=== PATIENT | female | born 1960 | race Two or more races ===

== ENCOUNTER 2016-09-02 15:45 | Emergency (ER) | payer OTHER ==
[~2016-09-02] VITALS: Ht 149.9 cm; Wt 63.5 kg
[2016-09-02 15:45] VITALS: BP 139/78
[2016-09-02] MEDS ORDERED: VITA200038 PO (15:53)
[2016-09-02] MEDS ORDERED: FISH1000 PO (15:53)
[2016-09-02 17:12] LABS: BASO % 0.7 % (0.0-1.0); EOS # 0.2 K/mm3 (0.0-0.50); EOS % 2.6 % (0.0-3.0); LARGE UNSTAINED CELL # 0.1 K/mm3 (0.0-0.4); LARGE UNSTAINED CELL % 1.7 % (0.0-4.0); LYMPH # 2.5 K/mm3 (1.5-4.5); LYMPH % 34.7 % (24.0-44.0); MEAN CORPUSCULAR HEMOGLOBIN 29.2 pg (27.0-33.0); MEAN CORPUSCULAR HGB CONC 34.5 g/dl (32.0-36.5); MEAN CORPUSCULAR VOLUME 84.6 fl (80.0-96.0); MONO # 0.4 K/mm3 (0.0-0.8); MONO % 5.4 % (0.0-5.0); NEUTROPHILS # 3.9 K/mm3 (1.8-7.7); NEUTROPHILS % 54.9 % (36.0-66.0); PLATELET COUNT, AUTOMATED 284 k/mm3 (150-450); WHITE BLOOD COUNT 7.2 K/mm3 (4.0-10.0)
[2016-09-02 17:35] LABS: ALBUMIN 4.3 GM/DL (3.2-5.2); ALBUMIN/GLOBULIN RATIO 1.23 (1.00-1.93); ALKALINE PHOSPHATASE 83 U/L (45-117); ALT/SGPT 32 U/L (12-78); ANION GAP 8 MEQ/L (8-16); AST/SGOT 14 U/L (15-37); BILIRUBIN,TOTAL 0.3 MG/DL (0.2-1.0); BLOOD UREA NITROGEN 20 MG/DL (7-18); CALCIUM LEVEL 9.2 MG/DL (8.5-10.1); CARBON DIOXIDE LEVEL 27 MEQ/L (21-32); CHLORIDE LEVEL 108 MEQ/L (98-107); CREATININE FOR GFR 0.72 MG/DL (0.55-1.02); GLOMERULAR FILTRATION RATE > 60.0 (>51); GLUCOSE, FASTING 108 MG/DL (70-105); POTASSIUM SERUM 3.8 MEQ/L (3.5-5.1); SODIUM LEVEL 143 MEQ/L (136-145); TOTAL PROTEIN 7.8 GM/DL (6.4-8.2)
[2016-09-02 17:45] LABS: CONTROL LINE INT CTR LINE PRESENT
[2016-09-05 11:57] LABS: HEPATITIS B SURFACE ANTIBODY POSITIVE (POSITIVE)
== END 2016-09-02 17:21 | disposition home or self-care (01) ==
LOC: M ED 16:29
DX: Z77.21 Contact with and (suspected) exposure to potentially hazardous body fluids (principal); W46.0XXA Contact with hypodermic needle, initial encounter; Y92.239 Unspecified place in hospital as the place of occurrence of the external cause; Y93.89 Activity, other specified; Y99.0 Civilian activity done for income or pay

== ENCOUNTER 2018-10-01 23:19 | Observation (INO) | payer OTHER, SELFPAY ==
[~2018-10-01] VITALS: Ht 149.9 cm; Wt 65.9 kg
[~2018-10-01 23:19] MED LIST: FISH1000 PO; VITA200038 PO
[2018-10-01] MEDS ORDERED: HM V5000 PO (23:26)
[2018-10-01] MEDS ORDERED: MULTCAP PO (23:26)
[2018-10-02 01:04] LABS: BASO % 0.5 % (0.0-1.0); EOS # 0.2 10^3/uL (0.0-0.50); EOS % 2.1 % (0.0-3.0); HEMATOCRIT 44.4 % (36.0-47.0); HEMOGLOBIN 15.1 g/dl (12.0-15.5); LYMPH # 3.4 10^3/uL (1.5-4.5); MEAN CORPUSCULAR HEMOGLOBIN 29.3 pg (27.0-33.0); MEAN CORPUSCULAR VOLUME 86.2 fl (80.0-96.0); MONO # 0.5 10^3/uL (0.0-0.8); MONO % 6.4 % (0.0-5.0); NEUTROPHILS # 3.4 10^3/uL (1.8-7.7); NEUTROPHILS % 45.7 % (36.0-66.0); PLATELET COUNT, AUTOMATED 270 10^3/uL (150-450); RED BLOOD COUNT 5.15 10^6/uL (4.00-5.40); WHITE BLOOD COUNT 7.5 10^3/uL (4.0-10.0)
--- NOTE | 2018-10-02 01:06 | REPVR ---
EXAM: CT Head Without Contrast EXAM DATE/TIME: 10/02/2018 12:16 AM CLINICAL HISTORY: 58 years old, female; Signs and symptoms; Other: Left arm weak; Additional info: CVA - nursing interventions must not delay CT TECHNIQUE: Imaging protocol: Axial computed tomography images of the head/brain without contrast. Radiation optimization: All CT scans at this facility use at least one of these dose optimization techniques: automated exposure control; mA and/or kV adjustment per patient size (includes targeted exams where dose is matched to clinical indication); or iterative reconstruction. COMPARISON: No relevant prior studies available. FINDINGS: Brain: Normal. No hemorrhage. No significant white matter disease. No edema. Ventricles: Normal. No ventriculomegaly. Bones/joints: Unremarkable. No acute fracture. Sinuses: Visualized sinuses are unremarkable. No acute sinusitis. Mastoid air cells: Visualized mastoid air cells are unremarkable. No mastoid effusion. Soft tissues: Unremarkable. IMPRESSION: No acute intracranial abnormality. Electronically signed by: Amanda Pierson On 10/02/2018 01:05:52 AM
[2018-10-02 01:17] LABS: INR 0.92; PARTIAL THROMBOPLASTIN TIME 30.7 SECONDS (25.4-37.6); PROTHROMBIN TIME 12.5 SECONDS (12.1-14.4)
[2018-10-02 01:57] LABS: BLOOD UREA NITROGEN 13 MG/DL (7-18); CARBON DIOXIDE LEVEL 25 MEQ/L (21-32); CHLORIDE LEVEL 108 MEQ/L (98-107); CK-MB VALUE MASS < 1.0 NG/ML (<3.6); CPK CREATINE PHOSPHOKINASE 123 U/L (26-192); CREATININE FOR GFR 0.68 MG/DL (0.55-1.30); GLOMERULAR FILTRATION RATE > 60.0 (>45); GLUCOSE, FASTING 110 MG/DL (70-100); MB/CK RELATIVE INDEX 0.81 (< OR =4); POTASSIUM SERUM 4.4 MEQ/L (3.5-5.1); SODIUM LEVEL 141 MEQ/L (136-145); TROPONIN I < 0.02 NG/ML (< 0.10)
[2018-10-02] MEDS ORDERED: ACETAMINOPHEN TAB 650MG DOSE (2X325MG) PO ONE (02:15)
[2018-10-02] MEDS ORDERED: VITMTA PO (02:36)
[2018-10-02] MEDS ORDERED: ARTI99.0 OU (02:36)
[2018-10-02] MEDS ORDERED: VITA500T41 PO (02:36)
[2018-10-02] MEDS ORDERED: ASPI81TA85 PO (02:36)
[2018-10-02] MEDS ORDERED: ACETAMINOPHEN TAB 650MG DOSE (2X325MG) PO PRN (02:45)
--- NOTE | 2018-10-02 02:56 | HPEPDOC ---
General Date of Admission Oct 02, 2018 at 02:18 Chief Complaint The patient is a 58-year-old female admitted with a reason for visit of Transie nt Ischemic Attack. Source: Patient History of Present Illness 58 y/o F c/o one episode of left arm weakness, lasted for less than 10 minutes, resolved its own. Pt stated that at about 10 pm on 10/01/18, while watching TV she felt her left arm was weak associated with mild headache. In ER pt was found with with vitals of BP 197/95 then improved to 150/80 without any intervention, HR 73, RR 20, Temp 97.6, SpO2-97% on RA; CT head- no acute pathology, EKG- NSR. Tylenol was ordered for headache. Hospitalist service was consulted to admit the pt for observation. Pt was seen and examined at bedside in ER. Pt was resting comfortably in bed, c/o headache. Pt stated that she did not see a physician in last 3 years and does not take any prescribed medication. PMH- ? h/o prediabetes. PSxH- B/l oophorectomy Allergies- NKDA Home meds- reviewed, please refer to permanent medical records. 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 Abdomen- soft, non tender, Psychiatric- mood normal Labs and imaging studies reviewed. WBC 7.5 H/H 15.1/44.[address] head- no acute pathology EKG- NSR Pt might have had resolved episode of left arm weakness secondary to TIA Impression- TIA Plan will f/u MRI head, MRA head/neck, telemetry will f/u lipid profile, HbA1c elevated BP pt stated that she noticed her BP was elevated for past 1 week will continue to monitor BP, will consider starting on antihypertensive medications depending on clinical course Home Medications Scheduled Cyanocobalamin (Vitamin B-12) (Vitamin B-12) 500 Mcg Tablet, 500 MCG PO DAILY, (Reported) Multivitamins (Thera M Plus Tablet) 1 Each Tablet, 1 TAB PO DAILY, (Reported) Scheduled PRN Aspirin (Aspir 81) 81 Mg Tablet.dr, 81 MG PO Q4H PRN for HEADACHE, (Reported) Polyvinyl Alcohol (Artificial Tears) 15 Ml Drops, 1 DROP OU QID PRN for DRY EYES, (Reported) Allergies Coded Allergies: No Known Allergies (Unverified , 09/02/16) A-FIB/CHADSVASC A-FIB History Current/History of A-Fib/PAF?: No Current Oral Anticoagulant The: No Vital Signs Vital Signs Date Time Temp Pulse Resp B/P (MAP) Pulse Ox O2 Delivery O2 Flow Rate FiO2 10/02/18 01:46 51 18 150/80 (103) 95 Room Air 10/01/18 23:19 97.6 Laboratory Data Labs 24H Laboratory Tests 2 10/02/18 00:56: Bedside Glucose (Misc Panel) 112 10/02/18 00:58: Immature Granulocyte % (Auto) 0.3, White Blood Count 7.5, Red Blood Count 5.15, Hemoglobin 15.1, Hematocrit 44.4, Mean Corpuscular Volume 86.2, Mean Corpuscular Hemoglobin 29.3, Mean Corpuscular Hemoglobin Concent 34.0, Red Cell Distribution Width 12.4, Platelet Count 270, Neutrophils (%) (Auto) 45.7, Lymphocytes (%) (Auto) 45.0H, Monocytes (%) (Auto) 6.4H, Eosinophils (%) (Auto) 2.1, Basophils (%) (Auto) 0.5, Neutrophils # (Auto) 3.4, Lymphocytes # (Auto) 3.4, Monocytes # (Auto) 0.5, Eosinophils # (Auto) 0.2, Basophils # (Auto) 0.0, Nucleated Red Blood Cells % (auto) 0.0, Prothrombin Time 12.5, Prothromb Time International Ratio 0.92, Activated Partial Thromboplast Time 30.7, Anion Gap 8, Glomerular Fi ltration Rate > 60.0, Blood Urea Nitrogen 13, Creatinine 0.68, Sodium Level 141, Potassium Level 4.4, Chloride Level 108H, Carbon Dioxide Level 25, Calcium Level 9.0, Total Creatine Kinase 123, Creatine Kinase MB < 1.0, Creatine Kinase MB Relative Index 0.81, Troponin I < 0.02 CBC/BMP Laboratory Tests 10/02/18 00:58 Red Blood Count 5.15, Mean Corpuscular Volume 86.2, Mean Corpuscular Hemoglobin 29.3, Mean Corpuscular Hemoglobin Concent 34.0, Red Cell Distribution Width 12.4 , Neutrophils (%) (Auto) 45.7, Lymphocytes (%) (Auto) 45.0 H, Monocytes (%) (Auto) 6.4 H, Eosinophils (%) (Auto) 2.1, Basophils (%) (Auto) 0.5, Neutrophils # (Auto) 3.4, Lymphocytes # (Auto) 3.4, Monocytes # (Auto) 0.5, Eosinophils # (Auto) 0.2, Basophils # (Auto) 0.0, Calcium Level 9.0, Total Creatine Kinase 123 Plan / VTE VTE Prophylaxis Ordered?: No VTE Exclusion Mechanical Proph: Low Risk for VTE TRINI PONCE MD Oct 02, 2018 02:56
[2018-10-02] MEDS ORDERED: ASPIRIN 81 MG ENTERIC TAB PO PRN (03:00)
[2018-10-02] MEDS ORDERED: POLYVINYL ALCOHOL OPHTH SOLN 15 ML(LIQUITEARS) OU PRN (03:00)
--- NOTE | 2018-10-02 07:28 | ECGEPIP ---
Stationary ECG Study [facility] - ED Test Date: 2018-10-02 Pat Name: MARKY LEROY Department: Room: - Gender: F [employer]: drew : 1960 Requested By: LIZZETTE Sharp Order Number: [id number] Reading MD: Omar Hdez Measurements Intervals Sisters Rate: 74 P: 52 CA: 158 QRS: -27 QRSD: 96 T: 14 QT: 384 QTc: 428 Interpretive Statements SINUS RHYTHM WITH SINUS ARRHYTHMIA BORDERLINE LEFT AXIS DEVIATION INCOMPLETE RIGHT BUNDLE BRANCH BLOCK NSTTW ABNORMALITIES SIMILAR TO 07/31/13 Electronically Signed On 10-02-2018 7:28:02 EDT by Omar Hdez
[2018-10-02 08:00] VITALS: BP 144/83
[2018-10-02 08:29] LABS: CHOLESTEROL LEVEL 295 MG/DL (<200); CHOLESTEROL RISK RATIO 7.375 (<5); HDL CHOLESTEROL 40 MG/DL (>40); NON-HDL-C 255 MG/DL; TRIGLYCERIDES LEVEL 413 MG/DL (<150)
--- NOTE | 2018-10-02 08:40 | REP ---
Portable chest x-ray: Single view. History: CVA. Comparison chest x-ray: 30 July 2013. Findings: EKG monitoring electrodes overlie the chest. There is minimal plate-like atelectasis in the right base. Heart is not enlarged. The aorta somewhat tortuous. Pulmonary vasculature is not increased. Impression: Plate-like atelectasis right base. Otherwise no active disease. Electronically Signed by Wilbert Griffin MD 10/02/2018 08:31 A
[2018-10-02] MEDS ORDERED: CYANOCOBALAMIN 500 MCG TAB PO SCH (09:00)
[2018-10-02] MEDS ORDERED: MULTIVITAMINS/MINERALS THERAP 1 TAB PO SCH (09:00)
[2018-10-02 10:14] LABS: HEMOGLOBIN A1c 6.3 %
[2018-10-02] MEDS ORDERED: PROHANCE 279.3MG/ML 5ML VIAL (A9576) As Ordered ONE (10:46)
[2018-10-02] MEDS ORDERED: PROHANCE 279.3MG/ML 15ML VIAL (A9576) As Ordered ONE (10:47)
--- NOTE | 2018-10-02 11:59 | REP ---
MRA BRAIN WITHOUT CONTRAST: HISTORY: TIA. 3D [id number]-dmkkug MR angiography was performed at the level of the solomon of [place]. There is no aneurysm, arteriovenous malformation, or atherosclerotic lesion. 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 The left vertebral artery is dominant. The right vertebral artery is very hypoplastic. IMPRESSION: Normal MRA brain. Electronically Signed by Quoc Valverde MD 10/02/2018 12:02 P
--- NOTE | 2018-10-02 12:05 | REP ---
MRA CAROTIDS WITHOUT AND WITH CONTRAST: HISTORY: TIA. CONTRAST: ProHance 25 mL. Unenhanced 3D [id number] and contrast-enhanced MR angiography were performed at the level of the carotid bifurcations. The distal common carotid arteries and origins of the external and internal carotid arteries are normal. There are no atherosclerotic lesions. The vertebral arteries are patent. The left vertebral artery is dominant. The distal right vertebral artery is very hypoplastic. IMPRESSION: Normal MRA carotids. Electronically Signed by Quoc Valverde MD 10/02/2018 12:06 P
--- NOTE | 2018-10-02 12:36 | REP ---
MR BRAIN WITHOUT CONTRAST: HISTORY: TIA. COMPARISON: CT 10/02/2018. Several punctate areas of increased signal intensity on T2-weighted images are present in the periventricular and subcortical white matter. This represents small vessel ischemic disease. There is no intraparenchymal hemorrhage, infarct, mass, or midline shift. The sella turcica is partially empty. The ventricular system is normal in appearance. There is no extracerebral collection. A retention cyst is present in the right maxillary sinus. IMPRESSION: Minimal small vessel ischemic disease. Electronically Signed by Quoc Valverde MD 10/02/2018 12:46 P
[2018-10-02] MEDS ORDERED: AMLO5TAB6 PO (13:55)
[2018-10-02] MEDS ORDERED: SIMV10TA2 PO (13:55)
--- NOTE | 2018-10-02 14:42 | DS.PDOC ---
Discharge Summary General Date of Admission Oct 02, 2018 at 02:18 Discharge Summary PROCEDURES PERFORMED DURING STAY: [None]. ADMITTING DIAGNOSES: TIA Headache Hypertension DISCHARGE DIAGNOSES: Hypertension urgency Hyperlipidemia Possible TIA COMPLICATIONS/CHIEF COMPLAINT: Transient Ischemic Attack. HISTORY OF PRESENT ILLNESS: [ 58 y/o F c/o one episode of left arm weakness, lasted for less than 10 minutes, resolved its own. Pt stated that at about 10 pm on 10/01/18, while watching TV she felt her left arm was weak associated with mild headache. In ER pt was found with with vitals of BP 197/95 then improved to 150/80 without any intervention, HR 73, RR 20, Temp 97.6, SpO2-97% on RA; CT head- no acute pathology, EKG- NSR. Tylenol was ordered for headache. Hospitalist service was consulted to admit the pt for observation. Pt was seen and examined at bedside in ER. Pt was resting comfortably in bed, c/o headache. Pt stated that she did not see a physician in last 3 years and does not take any prescribed medication.]. HOSPITAL COURSE: [58-year-old female with only history of prediabetes? Who presented complaining of one episode of left arm weakness lasting for less than 10 minutes that resolved on its own. She incidentally also noted to have elevated blood pressure along with a headache. Patient was admitted for TIA evaluation. Patient had a CT of the head which showed no acute abnormality. Chest x-ray showed platelike atelectasis at the right base but otherwise no active disease. MRA of the carotids showed normal finding. MRA of the brain showed normal brain. MRI of the brain showed minimal small vessel ischemic disease. Her WBC, H&H, platelet within normal. Her basic metabolic profiles within normal except for glucose of 110 and minimal elevation of chloride. Her hemoglobin A1c is within normal. Troponin is negative. Her triglyceride is elevated above 400 and total cholesterol is over and 200. Patient's weakness resolved and back to baseline. Patient agreeable to going home today and fol lowing up with a PCP of her choosing within 1 week. Patient also aware of her elevated cholesterol level. She is agreeable to take simvastatin for now and continue diet and exercise, and follow up with primary care as outpatient. Patient also has a home blood pressure cuff that she uses a time. Advised patient to monitor blood pressure and to hold amlodipine if her blood pressure systolic is less than 100. Again patient to follow up with PCP as outpatient within 1 week. DISCHARGE MEDICATIONS: Please see below. ALLERGIES: Please see below. PHYSICAL EXAMINATION ON DISCHARGE: VITAL SIGNS: Please see below. GENERAL APPEARANCE: Resting comfortably HEENT: Normocephalic, PERRLA, Mucous moist, CARDIOVASCULAR: S1,S2, pulse present, regularly, regular, no obvious murmur LUNGS: Equal air entry b/l, no wheezes or crackle ABDOMEN: Soft, BS present, no tenderness, no guarding GENITOURINARY: No Lerma EXTREMITIES: B/L no edema, capillary refill present SKIN: Warm, No fever NEUROLOGICAL: Cranial nerves grossly intact PSYCHIATRIC: Normal mood and affect for current situation LABORATORY DATA: Please see below. IMAGING: [ CT head: No acute intracranial abnormality. CXR: Plate-like atelectasis right base. Otherwise no active disease. MRA carotid: Normal MRA carotids. MRA brain: Normal MRA brain. MRI brain: Minimal small vessel ischemic disease.] PROGNOSIS: [Improved] ACTIVITY: [As tolerated]. DIET: [Low-salt diet] DISCHARGE PLAN: [Please follow up with PCP within one week. DISPOSITION: Home DISCHARGE INSTRUCTIONS: Please follow up with PCP 1 week. Antihypertensive and statin therapy prescription provided. DISCHARGE CONDITION: [Stable]. TIME SPENT ON DISCHARGE: Greater than [30] minutes. Vital Signs/I&Os Vital Signs Date Time Temp Pulse Resp B/P (MAP) Pulse Ox O2 Delivery O2 Flow Rate FiO2 10/02/18 07:30 74 18 Room Air 10/02/18 06:27 97.9 144/83 (103) 97 Laboratory Data Labs 24H Laboratory Tests 2 10/02/18 00:56: Bedside Glucose (Misc Panel) 112 10/02/18 00:58: Immature Granulocyte % (Auto) 0.3, White Blood Count 7.5, Red Blood Count 5.15, Hemoglobin 15.1, Hematocrit 44.4, Mean Corpuscular Volume 86.2, Mean Corpuscular Hemoglobin 29.3, Mean Corpuscular Hemoglobin Concent 34.0, Red Cell Distribution Width 12.4, Platelet Count 270, Neutrophils (%) (Auto) 45.7, Lymphocytes (%) (Auto) 45.0H, Monocytes (%) (Auto) 6.4H, Eosinophils (%) (Auto) 2.1, Basophils (%) (Auto) 0.5, Neutrophils # (Auto) 3.4, Lymphocytes # (Auto) 3.4, Monocytes # (Auto) 0.5, Eosinophils # (Auto) 0.2, Basophils # (Auto) 0.0, Nucleated Red Blood Cells % (auto) 0.0, Prothrombin Time 12.5, Prothromb Time International Ratio 0.92, Activated Partial Thromboplast Time 30.7, Anion Gap 8, Glomerular Filtration Rate > 60.0, Estimated Mean Plasma Glucose 134H, Hemoglobin A1c 6.3, Calcium Level 9.0, Total Creatine Kinase 123, Creatine Kinase MB < 1.0, Creatine Kinase MB Relative Index 0.81, Troponin I < 0.02, Triglycerides Level 413H, LDL Cholesterol , Total Cholesterol 295H, Non-HDL Cholesterol (LDL + VLDL) 255, Total HDL Cholesterol 40, Cholesterol/HDL Ratio 7.375H CBC/BMP Laboratory Tests 10/02/18 00:58 Red Blood Count 5.15, Mean Corpuscular Volume 86.2, Mean Corpuscular Hemoglobin 29.3, Mean Corpuscular Hemoglobin Concent 34.0, Red Cell Distribution Width 12.4, Neutrophils (%) (Auto) 45.7, Lymphocytes (%) (Auto) 45.0 H, Monocytes (%) (Auto) 6.4 H, Eosinophils (%) (Auto) 2.1, Basophils (%) (Auto) 0.5, Neutrophils # (Auto) 3.4, Lymphocytes # (Auto) 3.4, Monocytes # (Auto) 0.5, Eosinophils # (Auto) 0.2, Basophils # (Auto) 0.0, Calcium Level 9.0, Total Creatine Kinase 123 FSBS Laboratory Tests Test 10/02/18 00:56 Range/Units Bedside Glucose (Misc Panel) 112 80-115 MG/DL Discharge Medications Scheduled Amlodipine Besylate (Amlodipine Besylate) 5 Mg Tablet, 5 MG PO DAILY Cyanocobalamin (Vitamin B-12) (Vitamin B-12) 500 Mcg Tablet, 500 MCG PO DAILY, (Reported) Multivitamins (Thera M Plus Tablet) 1 Each Tablet, 1 TAB PO DAILY, (Reported) Simvastatin (Simvastatin) 10 Mg Tablet, 1 TAB PO QPM Scheduled PRN Aspirin (Aspir 81) 81 Mg Tablet.dr, 81 MG PO Q4H PRN for HEADACHE, (Reported) Polyvinyl Alcohol (Artificial Tears) 15 Ml Drops, 1 DROP OU QID PRN for DRY EYES, (Reported) Allergies Coded Allergies: No Known Allergies (Unverified , 09/02/16) PEDRO MCBRIDE MD Oct 02, 2018 14:42
== END 2018-10-02 15:11 | disposition home or self-care (01) ==
LOC: M ED 23:19 → M ED INP 10-02 02:18
PROVIDERS: ADMIT Internal Medicine; ATTEND Internal Medicine
DX: I16.0 Hypertensive urgency (principal); E78.49 Other hyperlipidemia; G45.9 Transient cerebral ischemic attack, unspecified; R51 Headache; Z79.899 Other long term (current) drug therapy
CPT/HCPCS: 36415; 70450; 70544; 70549; 70551; 71045; 80048; 80061; 82550; 82553; 83036; 84484; 85025; 85610; 85730; 86850; 86900; 86901; 93005; 93041; 94760; 99285; A9576

== ENCOUNTER → 2018-10-14 | Outpatient (CLI) | payer OTHER ==
[~2018-10-14] MED LIST changes: +AMLO5TAB6 PO; +ARTI99.0 OU; +ASPI81TA85 PO; +HM V5000 PO; +MULTCAP PO; +SIMV10TA2 PO; +VITA500T41 PO; +VITMTA PO
--- NOTE | 2018-10-15 05:32 | REP ---
Clinical: Left neck swelling at the periauricular region. Technique: Real time kearney scale and color evaluation using linear and curved array transducers. Findings: Directed ultrasound examination along the left posterior inferior auricular region of the neck demonstrates few hypoechoic ovoid lesions which are otherwise nonspecific but likely represent small lymph nodes. Findings measures 7 x 4 x 5 mm, 6 x 5 x 2 mm, and 3 x 1 x 3 mm. Impression: Nonspecific hypoechoic ovoid lesions likely representing small lymph nodes or possible small benign granulomatous change. Findings appear avascular and likely benign/chronic by ultrasound.
== END ==
LOC: M WHC 09:55
PROVIDERS: ATTEND Family Medicine
DX: R22.1 Localized swelling, mass and lump, neck (principal)

== ENCOUNTER → 2018-11-24 | Outpatient (REF) | payer OTHER ==
[2018-11-24 14:01] LABS: BLOOD UREA NITROGEN 22 MG/DL (7-18); CALCIUM LEVEL 9.1 MG/DL (8.8-10.2); CARBON DIOXIDE LEVEL 27 MEQ/L (21-32); CHLORIDE LEVEL 106 MEQ/L (98-107); CREATININE FOR GFR 0.74 MG/DL (0.55-1.30); GLOMERULAR FILTRATION RATE > 60.0 (>45); GLUCOSE, FASTING 94 MG/DL (70-100); POTASSIUM SERUM 4.1 MEQ/L (3.5-5.1); SODIUM LEVEL 140 MEQ/L (136-145)
== END ==
LOC: M SFHCPLAZ 11:14
PROVIDERS: ATTEND Family Medicine
DX: I10 Essential (primary) hypertension (principal)
CPT/HCPCS: 36415; 80048; G0463

== ENCOUNTER → 2018-12-03 | Outpatient (REF) | payer OTHER ==
[2018-12-09 14:31] LABS: HPV LOW VOL RFLX Negative (Negative)
== END ==
LOC: M SFHCPLAZ 10:19
PROVIDERS: ATTEND Family Medicine
DX: Z12.4 Encounter for screening for malignant neoplasm of cervix (principal)

== ENCOUNTER → 2018-12-10 | Outpatient (REF) | payer OTHER ==
[2018-12-10 13:32] LABS: BLOOD UREA NITROGEN 21 MG/DL (7-18); CREATININE FOR GFR 0.78 MG/DL (0.55-1.30); GLUCOSE, FASTING 102 MG/DL (70-100)
[2018-12-10 13:33] LABS: CALCIUM LEVEL 9.1 MG/DL (8.8-10.2); CARBON DIOXIDE LEVEL 26 MEQ/L (21-32); CHLORIDE LEVEL 106 MEQ/L (98-107); GLOMERULAR FILTRATION RATE > 60.0 (>45); POTASSIUM SERUM 3.8 MEQ/L (3.5-5.1); SODIUM LEVEL 139 MEQ/L (136-145)
== END ==
LOC: M SFHCPLAZ 08:58
PROVIDERS: ATTEND Family Medicine
DX: I10 Essential (primary) hypertension (principal)

== ENCOUNTER → 2019-01-07 | Outpatient (CLI) | payer OTHER ==
--- NOTE | 2019-01-07 14:35 | REPMRS ---
Patient History The patient states she had a clinical breast exam in 11/2018. Patient is postmenopausal. No known family history of cancer. Digital Woman Screen Mammo: January 07, 2019 - Exam #: [id number] Bilateral CC and MLO view(s) were taken. Technologist: Cindi Rader, Technologist Prior study comparison: January 05, 2011, bilateral digital mammo screening bilat, performed at [facility]. March 01, 2006, bilateral screening mammogram, performed at [facility]. FINDINGS: There are scattered fibroglandular densities. There has been no change in the appearance of the mammogram from the prior studies. There is a mild amount of scattered fibroglandular density which is fairly symmetric. There is no interval development of dominant mass, architectural distortion, or grouped microcalcification suggestive of malignancy. Assessment: BI-RADS/ACR category 1 mammogram. Negative Mammogram. Recommendation Routine screening mammogram of both breasts in 1 year (for women over age 40). This patient's Lifetime Breast Cancer Risk is estimated at 6.4 %. This mammogram was interpreted with the aid of an FDA-approved computer-aided dectection system. Electronically Signed By: Martin Griffin MD 01/07/19 [id number]
== END ==
LOC: M WHC 13:17
PROVIDERS: ATTEND Family Medicine
DX: Z12.31 Encounter for screening mammogram for malignant neoplasm of breast (principal); Z78.0 Asymptomatic menopausal state

== ENCOUNTER → 2019-05-26 | Outpatient (REF) | payer OTHER ==
[~2019-05-26] MED LIST changes: -ARTI99.0 OU; +ARTIDRO2 OU; -SIMV10TA2 PO; +SIMV10TA21 PO
[2019-05-26 17:11] LABS: CHOLESTEROL LEVEL 329 MG/DL (<200); HDL CHOLESTEROL 35 MG/DL (>40); NON-HDL-C 294 MG/DL; TRIGLYCERIDES LEVEL 864 MG/DL (<150)
== END ==
LOC: M SFHCLERA 13:21
PROVIDERS: ATTEND Family Medicine
DX: Z13.220 Encounter for screening for lipoid disorders (principal)

== ENCOUNTER → 2019-09-22 | Outpatient (REF) | payer OTHER ==
[~2019-09-22] MED LIST changes: -ARTIDRO2 OU; +POLYOPD OU
[2019-09-22 11:33] LABS: CHOLESTEROL LEVEL 223 MG/DL (<200); CHOLESTEROL RISK RATIO 6.194 (<5); HDL CHOLESTEROL 36 MG/DL (>40); NON-HDL-C 187 MG/DL; TRIGLYCERIDES LEVEL 479 MG/DL (<150)
== END ==
LOC: M SFHCLERA 07:36
PROVIDERS: ATTEND Family Medicine
DX: E78.2 Mixed hyperlipidemia (principal)

== ENCOUNTER → 2020-03-18 | Outpatient (REF) | payer OTHER ==
[~2020-03-18] MED LIST changes: +AMLO1TAB24 PO; -AMLO5TAB6 PO; -ASPI81TA85 PO; +ASPI81TA86 PO
[2020-03-18 14:27] LABS: BLOOD UREA NITROGEN 13 MG/DL (7-18); CALCIUM LEVEL 9.8 MG/DL (8.8-10.2); CARBON DIOXIDE LEVEL 30 MEQ/L (21-32); CHLORIDE LEVEL 102 MEQ/L (98-107); CHOLESTEROL LEVEL 220 MG/DL (<200); CREATININE FOR GFR 0.69 MG/DL (0.55-1.30); GLOMERULAR FILTRATION RATE > 60.0 (>45); GLUCOSE, FASTING 107 MG/DL (70-100); HDL CHOLESTEROL 40 MG/DL (>40); NON-HDL-C 180 MG/DL; SODIUM LEVEL 137 MEQ/L (136-145); TRIGLYCERIDES LEVEL 449 MG/DL (<150)
== END ==
LOC: M PLALAB 10:32
PROVIDERS: ATTEND Family Medicine
DX: E78.2 Mixed hyperlipidemia (principal); I10 Essential (primary) hypertension

== ENCOUNTER → 2020-09-22 | Outpatient (REF) | payer OTHER ==
[2020-09-22 13:57] LABS: BLOOD UREA NITROGEN 15 MG/DL (7-18); CALCIUM LEVEL 9.5 MG/DL (8.8-10.2); CARBON DIOXIDE LEVEL 30 MEQ/L (21-32); CHLORIDE LEVEL 107 MEQ/L (98-107); GLOMERULAR FILTRATION RATE > 60.0 (>45); GLUCOSE, FASTING 105 MG/DL (70-100); POTASSIUM SERUM 4.3 MEQ/L (3.5-5.1); SODIUM LEVEL 141 MEQ/L (136-145)
[2020-09-22 13:58] LABS: ALBUMIN 4.5 GM/DL (3.2-5.2); ALT/SGPT 55 U/L (12-78); BILIRUBIN,TOTAL 0.4 MG/DL (0.2-1.0); CHOLESTEROL LEVEL 164 MG/DL (<200); HDL CHOLESTEROL 41 MG/DL (>40); LDL CHOLESTEROL 74 MG/DL (<100); NON-HDL-C 123 MG/DL; TOTAL PROTEIN 8.1 GM/DL (6.4-8.2); TRIGLYCERIDES LEVEL 246 MG/DL (<150)
== END ==
LOC: M PLALAB 08:45
PROVIDERS: ATTEND Family Medicine
DX: E78.2 Mixed hyperlipidemia (principal); I10 Essential (primary) hypertension

== ENCOUNTER 2021-04-14 16:23 | Emergency (ER) | payer OTHER ==
[~2021-04-14] VITALS: Ht 149.9 cm; Wt 66.8 kg
[2021-04-14] MEDS ORDERED: HYDR12.55 (16:39)
[2021-04-14] MEDS ORDERED: ROSU20TA5 (16:39)
[2021-04-14] MEDS ORDERED: ONDANSETRON 4 MG ORAL DISINTEGRATING TAB PO ONE (17:25)
[2021-04-14] MEDS ORDERED: MECLIZINE 25 MG TABLET PO ONE (17:25)
[2021-04-14 18:21] LABS: BASO % 0.3 % (0.0-1.0); EOS % 0.1 % (0.0-3.0); HEMOGLOBIN 15.9 g/dl (12.0-15.5); LYMPH # 1.7 10^3/uL (1.5-5.0); MEAN CORPUSCULAR HEMOGLOBIN 28.5 pg (27.0-33.0); MEAN CORPUSCULAR HGB CONC 33.8 g/dl (32.0-36.5); MEAN CORPUSCULAR VOLUME 84.2 fl (80.0-96.0); MONO # 0.5 10^3/uL (0.0-0.8); NEUTROPHILS % 82.1 % (36.0-66.0); PLATELET COUNT, AUTOMATED 285 10^3/uL (150-450); RED BLOOD COUNT 5.58 10^6/uL (4.00-5.40); WHITE BLOOD COUNT 13.4 10^3/uL (4.0-10.0)
[2021-04-14 18:31] LABS: BLOOD UREA NITROGEN 16 MG/DL (7-18); CALCIUM LEVEL 10.2 MG/DL (8.8-10.2); CARBON DIOXIDE LEVEL 21 MEQ/L (21-32); CHLORIDE LEVEL 103 MEQ/L (98-107); CREATININE FOR GFR 0.87 MG/DL (0.55-1.30); GLOMERULAR FILTRATION RATE > 60.0 (>45); GLUCOSE, FASTING 158 MG/DL (70-100); POTASSIUM SERUM 3.9 MEQ/L (3.5-5.1); SODIUM LEVEL 138 MEQ/L (136-145)
--- NOTE | 2021-04-14 18:31 | REPVR ---
PROCEDURE INFORMATION: Exam: CT Head Without Contrast Exam date and time: 04/14/2021 5:54 PM Age: 60 years old Clinical indication: Other: Vertigo; Additional info: Vertigo 5 hrs ago TECHNIQUE: Imaging protocol: Computed tomography of the head without contrast. Radiation optimization: All CT scans at this facility use at least one of these dose optimization techniques: automated exposure control; mA and/or kV adjustment per patient size (includes targeted exams where dose is matched to clinical indication); or iterative reconstruction. COMPARISON: MRI-Brain without Contrast 10/02/2018 10:37 AM FINDINGS: Brain: No hemorrhage. Unremarkable white matter for the patient's age. No mass effect. No evolving territorial infarct. Mild volume loss. Cerebral ventricles: No ventriculomegaly. Paranasal sinuses: Visualized sinuses are unremarkable. No fluid levels. Mastoid air cells: Visualized mastoid air cells are well aerated. Bones/joints: Unremarkable. No acute fracture. Soft tissues: Unremarkable. IMPRESSION: No acute intracranial abnormality seen. Electronically signed by: Tori Bhandari On 04/14/2021 18:31:38 PM
--- OUTSIDE RECORDS SUMMARY | 2021-04-14 18:31 | CCD ---
Author Author [facility] Organization [facility] Address Unknown Phone Unavailable Care Team Providers Care Incident Response Coordinator Name Role Phone Johana Armas Unavailable PROBLEMS Type Condition ICD9-CM Code BXM10-WU Code Onset Dates Condition S tatus W/U Status Risk SNOMED Code Notes Problem Tension headache G44.209 Active confirmed 39 8946629 Problem Right hand paresthesia R20.2 Active confirmed 022338026 Problem Mixed hyperlipidemia E78.2 Active confirmed 607968323 Problem Essential hypertension I10 Active confirmed 99946496 Problem Vaginal atrophy N95.2 Active confirmed 2978 72612 Problem Seasonal allergic rhinitis, unspecified trigger J3 0.2 Active confirmed [id number] ALLERGIES Allergen (clinical drug ingredient) Drug/Non Drug Allergy do cumented on EMR Reaction Allergy Type Onset Date Status Pollen Pollen nasal drainage and congestion Drug Allergy Active ENCOUNTERS from 1960 to 2021-03-31 Encounter Location Date Provider Diagnosis [address] [phone] [place] [address] Mar, Johana Armas IMMUNIZATIONS Vaccine Route Administration Date Status TDAP 0.5mL (Boostrix) IM Intramuscular Jul 29, 2012 Administe red Influenza 6mo & up Fluzone Unknown May 18, 2014 Refus ed SOCIAL HISTORY Sex Assigned At : Social History Observation Description Sex Assigned At Unknown Audit Question Answer Notes Total Score: 0 Interpretation: Alcohol Education Sexual Hx: Question Answer Notes Had sex in the last 12 months (vaginal, oral, or anal)? Yes Have you ever had an STD? No Prevention Strategies discussed: Other with Men only Use protection? No Drug and Alcohol Question Answer Notes Total Score: 0 Interpretation: No problems reported BMI Care Goal Follow-Up Question Answer Notes Above Normal BMI Follow-Up Lifestyle education regarding t REASON FOR REFERRAL No Information VITAL SIGNS No information MEDICATIONS Medication SIG (Take, Route, Frequency, Duration) Notes Start Da te End Date Status Aspir-Low 81 MG 1 tablet Orally Once a day prn Active hydroCHLOROthiazide 12.5 MG 1 tablet in the morning Or ally Once a day for 90 days Nov, Active Ibuprofen 200 MG 2 tablets Orally every 6 hours as needed for 30 day( s) Not-Taking Fluticasone Propionate 50 MCG/ACT 1 spray in each nostril Nasall y Twice a day Nov, Not-Taking Rosuvastatin Calcium 20 MG 1 tablet Orally Once a day for 90 days Active PROCEDURES No Information RESULTS No Results REASON FOR VISIT BP recall MEDICAL (GENERAL) HISTORY Type Description Date Medical History Hyperlipidemia - ASCVD risk 9.0% in 09/27 19 Medical History Hypertension Medical History h/o chest pain/palpitations - Stress test 08/2013- NL, no inducible ischemia Medical History Pre-diabetes Surgical History Cystectomy/oophorectomy Rt 1981 Surgical History Lt salpingo-oophorectomy for ovarian tor [place] 2002 Hospitalization History surgery only Goals Section No Information Health Concerns No Information MEDICAL EQUIPMENT No Information MENTAL STATUS No Information FUNCTIONAL STATUS No Information ASSESSMENTS No Information PLAN OF TREATMENT Medication Medication Name Sig Start Date Stop Date hydroCHLOROthiazide 12.5 MG 1 tablet in the morning Or ally Once a day for 90 days Nov, Rosuvastatin Calcium 20 MG 1 tablet Orally Once a day for 90 day s Next Appt Details Provider Name:Johana Weston Pawel, 2021-05-01 10:00:00 AM, [address] [facility], , [place], [address], Insurance Providers Payer Name Payer Address Payer Phone Insured Name Patient Relati onship to Insured Coverage Start Date Coverage End Date [facility] [employer] [id number] [place] [id number] LILIAN LEROY
--- OUTSIDE RECORDS SUMMARY | 2021-04-14 18:34 | CCD ---
Author Author [facility] Organization [facility] Address Unknown Phone Unavailable Support Name Relationship Address Phone RE Next Of Kin Unknown Unavailable [facility] Next Of Kin [address] [place] [address] [facility] Next Of Kin [address] [place] [address] John LEROY Next Of Kin [address] [place] [address] LILIAN LEROY [address] [place] [address] [phone] Re-disclosure Warning The records that you are about to access may contain information from federally-assisted alcohol or drug abuse programs. If such information is present, then the following federally mandated warning applies: This information has been disclosed to you from records protected by federal confidentiality rules (42 CFR part 2). The federal rules prohibit you from making any further disclosure of this information unless further disclosure is expressly permitted by the written consent of the person to whom it pertains or as otherwise permitted by 42 CFR part 2. A general authorization for the release of medical or other information is NOT sufficient for this purpose. The Federal rules restrict any use of the information to criminally investigate or prosecute any alcohol or drug abuse patient.The records that you are about to access may contain highly sensitive health information, the redisclosure of which is protected by Article 27-F of the [place] State Public Health law. If you continue you may have access to information: Regarding HIV / AIDS; Provided by facilities licensed or operated by the [facility] Office of Mental Health; or Provided by the [facility] Office for People With Developmental Disabilities. If such information is present, then the following [facility] mandated warning applies: This information has been disclosed to you from confidential records which are protected by state law. State law prohibits you from making any further disclosure of this information without the specific written consent of the person to whom it pertains, or as otherwise permitted by law. Any unauthorized further disclosure in violation of state law may result in a fine or long-term sentence or both. A general authorization for the release of medical or other information is NOT sufficient authorization for further disc losure. Family History Family Member Name Family Member Gender Family Member Status Date o f Status Description Data Source(s) Unknown Male Problem [facility] ([facility] () - kidney Encounters Encounter Providers Location Date Indications Data Source(s ) Unknown [address] [facility] [address] 03/30/2021 12:00:00 AM EDT eCW1 ([facility]) Unknown [address] [facility] [address] 01/06/2021 12:00:00 AM EDT eCW1 ([facility]) Unknown [address] [facility] [address] 01/06/2021 12:00:00 AM EDT eCW1 ([facility]) Outpatient [address] [facility] [address] 09/28/2020 12:00:00 AM EDT eCW1 ([facility]) Outpatient [address] [facility] [address] 06/30/2020 12:00:00 AM EST eCW1 ([facility]) Unknown [address] [facility] [address] 05/25/2020 12:00:00 AM EST eCW1 ([facility]) Unknown [address] [facility] [address] 04/21/2020 12:00:00 AM EST eCW1 ([facility]) Outpatient [address] [facility] [address] 03/22/2020 12:00:00 AM EDT eCW1 ([facility]) Unknown [address] [facility] [address] 03/21/2020 12:00:00 AM EDT eCW1 ([facility]) Unknown [address] [facility] [address] 03/11/2020 12:00:00 AM EDT eCW1 ([facility]) Medications Medication Brand Name Start Date Product Form Dose Route Admi nistrative Instructions Pharmacy Instructions Status Indications Reaction Description Data Source(s) Rosuvastatin calcium 20 MG Oral Tablet Rosuvastatin Ca lcium 20 MG Rosuvastatin Calcium 20 MG 03/22/2020 12:00:00 AM EDT 1.0 {tablet} active Rosuvastatin Calcium 20 MG eCW1 ([facility]) Rosuvastatin calcium 20 MG Oral Tablet Rosuvastatin Ca lcium 20 MG Rosuvastatin Calcium 20 MG 03/22/2020 12:00:00 AM EDT 1.0 {tablet} active Rosuvastatin Calcium 20 MG eCW1 ([facility]) Rosuvastatin calcium 20 MG Oral Tablet Rosuvastatin Ca lcium 20 MG Rosuvastatin Calcium 20 MG 03/22/2020 12:00:00 AM EDT 1.0 {tablet} active Rosuvastatin Calcium 20 MG eCW1 ([facility]) Rosuvastatin calcium 20 MG Oral Tablet Rosuvastatin Ca lcium 20 MG Rosuvastatin Calcium 20 MG 03/22/2020 12:00:00 AM EDT 1.0 {tablet} active Rosuvastatin Calcium 20 MG eCW1 ([facility]) Rosuvastatin calcium 20 MG Oral Tablet Rosuvastatin Ca lcium 20 MG Rosuvastatin Calcium 20 MG 03/22/2020 12:00:00 AM EDT 1.0 {tablet} active Rosuvastatin Calcium 20 MG eCW1 ([facility]) Insurance Providers Payer name Policy type / Coverage type Policy ID Covered alliance party ID Covered alliance party's relationship to reno Policy [place] Plan Information [facility] [id number] [facility] [id number] ANSI-Not a Secondary Insurance [id number] ANSI-Not a Secondary Insurance [id number] ANSI-Not a Secondary Insurance [id number] ANSI-Not a Secondary Insurance [id number] ANSI-Not a Secondary Insurance [id number] ANSI-Not a Secondary Insurance [id number] ANSI-Not a Secondary Insurance [id number] ANSI-Not a Secondary Insurance [id number] ANSI-Not a Secondary Insurance [id number] ANSI-Not a Secondary Insurance [id number] [facility] [id number] [facility] [id number] ANSI-Not a Secondary Insurance [id number] ANSI-Not a Secondary Insurance [id number] [facility] [id number] [facility] [id number] SELF PAY ONLY SP [facility] [id number] [employer] [id number] Family Dependent 5 [id number] [employer] [id number] Family Dependent 5 [id number] [employer] [id number] Family Dependent 5 [id number] [employer] [id number] Family Dependent 5 [id number] [employer] [id number] Family Dependent 5 [id number] [facility] [id number] Problems, Conditions, and Diagnoses Code Display Name Description Problem Type Effective Dates Data Source(s) R20.2 [id number] Right hand paresthesia Problem 06/30/2020 12 :00:00 AM EST eCW1 ([facility]) G44.209 [id number] Tension headache Problem 03/22/2020 12:00:00 AM EDT eCW1 ([facility]) Surgeries/Procedures No Information Results No Information Social History No Information Vital Signs ID Date Data Source UNK Name Value Range Interpretation Code Description Data Source(s) Body weight 149 [lb_av] 149 [lb_av] eCW1 ([facility]) Body height 59 [in_i] 59 [in_i] eCW1 ([facility]) Body mass index (BMI) [Ratio] 30.09 kg/m2 30.09 kg/m2 eCW1 ([facility]) Heart rate 104 /min 104 /min eCW1 ([facility]) Respiratory rate 18 /min 18 /min eCW1 ([facility]) Body temperature 97.7 [degF] 97.7 [degF] eCW1 ( [facility]) Systolic blood pressure 136 mm[Hg] 136 mm[Hg] e CW1 ([facility]) Diastolic blood pressure 78 mm[Hg] 78 mm[Hg] eCW1 ([facility]) Body weight 152 [lb_av] 152 [lb_av] eCW1 ([facility]) Body height 59 [in_i] 59 [in_i] eCW1 ([facility]) Body mass index (BMI) [Ratio] 30.70 kg/m2 30.70 kg/m2 eCW1 ([facility]) Heart rate 100 /min 100 /min eCW1 ([facility]) Respiratory rate 18 /min 18 /min eCW1 ([facility]) Body temperature 96.9 [degF] 96.9 [degF] eCW1 ( [facility]) Systolic blood pressure 130 mm[Hg] 130 mm[Hg] e CW1 ([facility]) Diastolic blood pressure 78 mm[Hg] 78 mm[Hg] eCW1 ([facility]) Body weight 148 [lb_av] 148 [lb_av] eCW1 ([facility]) Body mass index (BMI) [Ratio] 29.89 kg/m2 29.89 kg/m2 eCW1 ([facility]) Heart rate 100 /min 100 /min eCW1 ([facility]) Body height 59 [in_i] 59 [in_i] eCW1 ([facility]) Respiratory rate 18 /min 18 /min eCW1 ([facility]) Body temperature 96.3 [degF] 96.3 [degF] eCW1 ( [facility]) Systolic blood pressure 120 mm[Hg] 120 mm[Hg] e CW1 ([facility]) Diastolic blood pressure 76 mm[Hg] 76 mm[Hg] eCW1 ([facility]) Patient Treatment Plan of Care Planned Activity Planned Date Details Description Data Source (s) Rosuvastatin calcium 20 MG Oral Tablet 03/22/2020 12:00:00 AM EDT eCW1 ([facility]) Rosuvastatin calcium 20 MG Oral Tablet 03/22/2020 12:00:00 AM EDT eCW1 ([facility]) Rosuvastatin calcium 20 MG Oral Tablet 03/22/2020 12:00:00 AM EDT eCW1 ([facility]) Rosuvastatin calcium 20 MG Oral Tablet 03/22/2020 12:00:00 AM EDT eCW1 ([facility])
[2021-04-14 19:52] VITALS: BP 146/67
[2021-04-14 20:21] LABS: HEMOGLOBIN A1c 6.5 %
== END 2021-04-14 19:50 | disposition home or self-care (01) ==
LOC: M ED 16:23
DX: H81.10 Benign paroxysmal vertigo, unspecified ear (principal); I10 Essential (primary) hypertension; E11.9 Type 2 diabetes mellitus without complications; E78.00 Pure hypercholesterolemia, unspecified; Z79.899 Other long term (current) drug therapy; Z79.82 Long term (current) use of aspirin

== ENCOUNTER → 2021-05-08 | Outpatient (CLI) | payer OTHER ==
[~2021-05-08] MED LIST changes: +HYDR12.55; +OMEP40CA4 PO; +ONDA4TAB6 PO; +ROSU20TA5; +SUCR1TA PO
[2021-05-08 16:45] LABS: BASO # 0.1 10^3/uL (0.0-0.2); BASO % 0.6 % (0.0-1.0); EOS # 0.1 10^3/uL (0.0-0.5); EOS % 1.5 % (0.0-3.0); HEMATOCRIT 44.5 % (36.0-47.0); LYMPH # 3.6 10^3/uL (1.5-5.0); LYMPH % 40.5 % (24.0-44.0); MEAN CORPUSCULAR HEMOGLOBIN 28.8 pg (27.0-33.0); MEAN CORPUSCULAR HGB CONC 33.7 g/dl (32.0-36.5); MEAN CORPUSCULAR VOLUME 85.6 fl (80.0-96.0); MONO # 0.7 10^3/uL (0.0-0.8); MONO % 8.1 % (2.0-8.0); NEUTROPHILS # 4.3 10^3/uL (1.5-8.5); PLATELET COUNT, AUTOMATED 291 10^3/uL (150-450); WHITE BLOOD COUNT 8.8 10^3/uL (4.0-10.0)
== END ==
LOC: M PLALAB 14:01
PROVIDERS: ATTEND Physician Assistant
DX: D72.829 Elevated white blood cell count, unspecified (principal)

== ENCOUNTER 2021-07-05 19:48 | Emergency (ER) | payer OTHER ==
[~2021-07-05] VITALS: Ht 149.9 cm; Wt 68.3 kg
[~2021-07-05 19:48] MED LIST changes: -OMEP40CA4 PO; -ONDA4TAB6 PO; -SUCR1TA PO
[2021-07-06 01:47] LABS: BASO % 0.3 % (0.0-1.0); HEMATOCRIT 46.2 % (36.0-47.0); HEMOGLOBIN 15.8 g/dl (12.0-15.5); LYMPH # 1.1 10^3/uL (1.5-5.0); LYMPH % 11.4 % (24.0-44.0); MEAN CORPUSCULAR HEMOGLOBIN 28.8 pg (27.0-33.0); MEAN CORPUSCULAR HGB CONC 34.2 g/dl (32.0-36.5); MEAN CORPUSCULAR VOLUME 84.2 fl (80.0-96.0); MONO # 0.5 10^3/uL (0.0-0.8); MONO % 4.6 % (2.0-8.0); NEUTROPHILS # 8.2 10^3/uL (1.5-8.5); NEUTROPHILS % 83.4 % (36.0-66.0); PLATELET COUNT, AUTOMATED 279 10^3/uL (150-450); RED BLOOD COUNT 5.49 10^6/uL (4.00-5.40); WHITE BLOOD COUNT 9.9 10^3/uL (4.0-10.0)
[2021-07-06 02:17] LABS: BLOOD UREA NITROGEN 20 MG/DL (7-18); CARBON DIOXIDE LEVEL 24 MEQ/L (21-32); CHLORIDE LEVEL 105 MEQ/L (98-107); CREATININE FOR GFR 0.81 MG/DL (0.55-1.30); GLOMERULAR FILTRATION RATE > 60.0 (>45); GLUCOSE, FASTING 146 MG/DL (70-100); POTASSIUM SERUM 3.8 MEQ/L (3.5-5.1); SODIUM LEVEL 141 MEQ/L (136-145)
[2021-07-06 02:18] LABS: ALBUMIN 4.5 GM/DL (3.2-5.2); ALT/SGPT 45 U/L (12-78); BILIRUBIN,DIRECT 0.1 MG/DL (0.0-0.2); BILIRUBIN,TOTAL 0.6 MG/DL (0.2-1.0); CALCIUM LEVEL 9.6 MG/DL (8.8-10.2); LIPASE 50 U/L (73-393); TOTAL PROTEIN 8.7 GM/DL (6.4-8.2)
[2021-07-06] MEDS ORDERED: MORPHINE 2 MG/ML 1ML VIAL (J2270) IV PRN (02:25)
[2021-07-06] MEDS ORDERED: ONDANSETRON 4MG/2ML VIAL IV ONE (02:25)
[2021-07-06] MEDS ORDERED: NS 1,000 ML IV ONE (02:25)
[2021-07-06] MEDS ORDERED: ISOVUE-370 76% 100ML VIAL As Ordered ONE (02:27)
[2021-07-06 04:00] VITALS: BP 141/77
[2021-07-06] MEDS ORDERED: GI COCKTAIL 50ML BTL(HYOSCYAMINE/MAALOX/LIDOCAINE VISCOUS)(1:3:1) PO ONE (05:00)
[2021-07-06] MEDS ORDERED: SUCRALFATE SUSP 1GM/10ML UD PO ONE (05:30)
[2021-07-06] MEDS ORDERED: OMEP40CA4 PO (07:15)
[2021-07-06] MEDS ORDERED: ONDA4TAB6 PO (07:15)
[2021-07-06] MEDS ORDERED: SUCR1TA PO (07:15)
== END 2021-07-06 08:20 | disposition home or self-care (01) ==
LOC: M ED 19:48
DX: K29.70 Gastritis, unspecified, without bleeding (principal); I10 Essential (primary) hypertension; E78.5 Hyperlipidemia, unspecified; Z79.899 Other long term (current) drug therapy; Z79.82 Long term (current) use of aspirin
CPT/HCPCS: 71045; 71275; 74177; 76705; 80048; 80076; 83605; 83690; 85025; 93005; 96374; 96375; 99284; J2270; J2405; Q9967

== ENCOUNTER → 2021-09-29 | Outpatient (CLI) | payer OTHER ==
[~2021-09-29] MED LIST changes: +OMEP40CA4 PO; +ONDA4TAB6 PO; +SUCR1TA PO
[2021-09-29 15:54] LABS: HEMOGLOBIN A1c 6.1 %
[2021-09-29 16:20] LABS: BLOOD UREA NITROGEN 14 MG/DL (7-18); CALCIUM LEVEL 9.3 MG/DL (8.8-10.2); CARBON DIOXIDE LEVEL 29 MEQ/L (21-32); CHLORIDE LEVEL 103 MEQ/L (98-107); CHOLESTEROL LEVEL 246 MG/DL (<200); CHOLESTEROL RISK RATIO 7.454 (<5); CREATININE FOR GFR 0.85 MG/DL (0.55-1.30); FREE T4 1.02 NG/DL (0.76-1.46); GLOMERULAR FILTRATION RATE > 60.0 (>45); GLUCOSE, FASTING 195 MG/DL (70-100); HDL CHOLESTEROL 33 MG/DL (>40); NON-HDL-C 213 MG/DL; POTASSIUM SERUM 3.5 MEQ/L (3.5-5.1); SODIUM LEVEL 137 MEQ/L (136-145); THYROID STIMULATING HORMONE 0.666 uIU/ML (0.358-3.740); TRIGLYCERIDES LEVEL 643 MG/DL (<150)
== END ==
LOC: M PLALAB 13:29
PROVIDERS: ATTEND Family Medicine
DX: E78.2 Mixed hyperlipidemia (principal); I10 Essential (primary) hypertension; Z13.1 Encounter for screening for diabetes mellitus; L65.9 Nonscarring hair loss, unspecified
CPT/HCPCS: 36415; 80048; 80061; 83036; 84439; 84443; G0463

== ENCOUNTER → 2022-05-14 | Outpatient (CLI) | payer OTHER | LOC: M WHC 14:41 | PROVIDERS: ATTEND Physician Assistant | DX: Z12.31 Encounter for screening mammogram for malignant neoplasm of breast (principal) ==

== ENCOUNTER → 2022-05-14 | Outpatient (CLI) | payer OTHER ==
[2022-05-14 18:08] LABS: BASO % 0.4 % (0.0-1.0); EOS # 0.2 10^3/uL (0.0-0.5); EOS % 2.4 % (0.0-3.0); HEMATOCRIT 46.3 % (36.0-47.0); HEMOGLOBIN 14.8 g/dl (12.0-15.5); LYMPH % 39.1 % (24.0-44.0); MEAN CORPUSCULAR HEMOGLOBIN 28.4 pg (27.0-33.0); MEAN CORPUSCULAR VOLUME 88.7 fl (80.0-96.0); MONO # 0.6 10^3/uL (0.0-0.8); MONO % 7.7 % (2.0-8.0); NEUTROPHILS # 3.8 10^3/uL (1.5-8.5); PLATELET COUNT, AUTOMATED 283 10^3/uL (150-450); RED BLOOD COUNT 5.22 10^6/uL (4.00-5.40); WHITE BLOOD COUNT 7.7 10^3/uL (4.0-10.0)
[2022-05-14 18:47] LABS: HEMOGLOBIN A1c 6.5 % (4.0-6.0)
[2022-05-14 19:15] LABS: ALBUMIN 4.4 G/DL (3.2-5.2); ALKALINE PHOSPHATASE 97 U/L (46-116); ALT/SGPT 53 U/L (7.0-40); AST/SGOT 48 U/L (<34); BILIRUBIN,TOTAL 0.3 MG/DL (0.3-1.2); BLOOD UREA NITROGEN 18 MG/DL (9-23); CALCIUM LEVEL 9.2 MG/DL (8.3-10.6); CARBON DIOXIDE LEVEL 26 MMOL/L (20-31); CHLORIDE LEVEL 102 MMOL/L (98-107); CHOLESTEROL LEVEL 201 MG/DL (<200); CHOLESTEROL RISK RATIO 4.43 (<5); CREATININE FOR GFR 0.59 MG/DL (0.55-1.30); GLOMERULAR FILTRATION RATE > 60.0 (>45); GLUCOSE, FASTING 109 MG/DL (74-106); HDL CHOLESTEROL 45.3 MG/DL (>40); LDL CHOLESTEROL 79.7 MG/DL (<100); NON-HDL-C 156 MG/DL; POTASSIUM SERUM 4.2 MMOL/L (3.5-5.1); SODIUM LEVEL 138 MMOL/L (136-145); TOTAL PROTEIN 7.7 G/DL (5.7-8.2); TRIGLYCERIDES LEVEL 380 MG/DL (<150)
== END ==
LOC: M PLALAB 15:39
PROVIDERS: ATTEND Physician Assistant
DX: R73.03 Prediabetes (principal)

== ENCOUNTER → 2024-10-05 | Outpatient (CLI) | payer MEDICARE, OTHER ==
[~2024-10-05] MED LIST changes: +ARTIDRO4 OU; +ONDA-282 PO; -ONDA4TAB6 PO; -POLYOPD OU; -ROSU20TA5; +ROSU20TA86
== END ==
LOC: M PLAIMG 16:09
PROVIDERS: ATTEND Student in an Organized Health Care Education/Training Program
DX: R05.3 Chronic cough (principal)

== ENCOUNTER → 2025-02-04 | Outpatient (CLI) | payer MEDICARE, OTHER ==
[2025-02-04 12:48] LABS: ALT/SGPT 33 U/L (7.0-40); AST/SGOT 30 U/L (<34); CALCIUM LEVEL 9.6 MG/DL (8.3-10.6); CARBON DIOXIDE LEVEL 28 MMOL/L (20-31); CHLORIDE LEVEL 103 MMOL/L (98-107); CHOLESTEROL LEVEL 330 MG/DL (<200); CHOLESTEROL RISK RATIO 7.51 (<5); CREATININE FOR GFR 0.68 MG/DL (0.55-1.30); GLOMERULAR FILTRATION RATE > 90.0 (>45); LDL CHOLESTEROL 208.9 MG/DL (<100); NON-HDL-C 286.1 MG/DL; POTASSIUM SERUM 4.4 MMOL/L (3.5-5.1); SODIUM LEVEL 140 MMOL/L (136-145); TRIGLYCERIDES LEVEL 386 MG/DL (<150)
[2025-02-04 12:49] LABS: FREE T4 1.41 NG/DL (0.89-1.76)
== END ==
LOC: M WUC 09:13
PROVIDERS: ATTEND Student in an Organized Health Care Education/Training Program
DX: Z00.00 Encounter for general adult medical examination without abnormal findings (principal); R05.9 Cough, unspecified; E07.9 Disorder of thyroid, unspecified; E78.00 Pure hypercholesterolemia, unspecified

== ENCOUNTER → 2025-02-05 | Outpatient (REF) | payer MEDICARE, OTHER ==
[2025-02-05 13:37] LABS: BASO # 0.1 10^3/uL (0.0-0.2); BASO % 0.7 % (0.0-1.0); EOS # 0.2 10^3/uL (0.0-0.5); EOS % 2.4 % (0.0-3.0); LYMPH # 2.9 10^3/uL (1.5-5.0); LYMPH % 31.3 % (24.0-44.0); MONO # 0.7 10^3/uL (0.0-0.8); MONO % 7.0 % (2.0-8.0); NEUTROPHILS # 5.5 10^3/uL (1.5-8.5); NEUTROPHILS % 58.3 % (36.0-66.0); PLATELET COUNT, AUTOMATED 298 10^3/uL (150-450)
[2025-02-05 14:13] LABS: ESTIMATED AVERAGE GLUCOSE 171.0 MG/DL (60-110)
== END ==
LOC: M LABWUC 12:53
PROVIDERS: ATTEND Student in an Organized Health Care Education/Training Program
DX: Z00.00 Encounter for general adult medical examination without abnormal findings (principal); I10 Essential (primary) hypertension; E11.9 Type 2 diabetes mellitus without complications